=== PATIENT | female | born 1980 | race Caucasian/White ===

== ENCOUNTER 2017-12-04 14:55 | Inpatient (IN) | payer OTHER ==
[~2017-12-04] VITALS: Ht 162.6 cm; Wt 63.1 kg
[2017-12-04 15:25] LABS: ABSOLUTE BASOPHIL COUNT 0 /CUMM (0.0-0.2); ABSOLUTE EOSINOPHIL COUNT 0 /CUMM (0.0-0.7); ABSOLUTE GRANULOCYTE CT 4.6 /CUMM (1.4-6.5); ABSOLUTE LYMPH COUNT 0.6 /CUMM (1.2-3.4); ABSOLUTE MONOCYTE COUNT 0.4 /CUMM (0.10-0.60); BASOPHIL % 0.2 % (0.0-2.0); EOSINOPHIL % 0.1 % (0-5); GRANULOCYTE % 81.3 % (42.2-75.2); HEMATOCRIT 38.9 % (37-47); MEAN CORPUSCULAR HGB 34.1 PG (27.0-31.0); MEAN CORPUSCULAR HGB CONC 34.7 G/DL (33.0-37.0); MEAN CORPUSCULAR VOLUME 98.2 FL (81.0-99.0); MEAN PLATELET VOLUME 6.8 FL (7.4-10.4); PLATELET COUNT 308 /CUMM (130-400); RBC DISTRIBUTION WIDTH 14.9 % (11.5-14.5); RED BLOOD CELL CT 3.96 /CUMM (4.20-5.40); WHITE BLOOD CELL COUNT 5.7 /CUMM (4.8-10.8)
--- NOTE | 2017-12-04 15:59 | ED GENERAL ADULT ---
History of Present Illness General Chief Complaint: Abdominal Pain/Flank Pain Stated Complaint: +NV, ABD PAIN, X 8 HRS Source: patient Exam Limitations: no limitations Vital Signs & Intake/Output Vital Signs & Intake/Output Vital Signs Date Time Temp Pulse Resp B/P B/P Pulse O2 O2 Flow FiO2 Mean Ox Delivery Rate 12/05 0500 98.5 78 18 124/59 12/05 0455 98.5 78 18 124/59 95 Room Air 12/05 0013 98.2 88 18 115/56 99 Room Air 12/04 2351 98.4 92 18 124/90 96 Room Air 12/04 2349 98.4 92 18 12490 96 Room Air 12/04 2309 98.4 92 18 12490 96 Room Air 12/04 2230 98.4 92 18 124/90 12/04 2217 98.4 92 18 12490 96 Room Air 12/04 1830 98.2 72 18 132/78 12/04 1807 98.4 104 18 132/83 96 Room Air 12/04 1511 98.5 118 18 126/91 96 ED Intake and Output 12/05 0000 12/04 1200 Intake Total 2000 Output Total Balance 2000 Intake, IV 2000 Patient 140 lb Weight Weight Reported by Patient Measurement Method Allergies Coded Allergies: No Known Allergies (06/27/17) Triage Note: PT STATES SHE HAS BEEN VOMITING SINCE THIS AM UNABLE TO KEEP ANYTHING DOWN. PT STATES HER STOMACH IS KILLING HER. Triage Nurses Notes Reviewed? yes : No Patient currently breastfeeds: No HPI: 37-year-old woman with no reported past medical history seen for evaluation of abdominal pain, nausea, and vomiting. Patient reports over the past 2 days she has had severe migraine which is caused her to stay in bed. This morning she awoke with severe abdominal pain with associated nausea, vomiting and chills. She denies a history of gallbladder disease. She does admit to smoking half pack cigarettes per day. Additionally she smokes about 1/2 pint of vodka each day. She denies any new medications. She otherwise denies any current migraine, chest pain, palpitations, heartburn, shortness of breath, cough. (Hemalatha JURADO,[place]) Past History Travel History Traveled to [place] past 21 day No Medical History Any Pertinent Medical History? 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 No ([place] Penny MD) Review of Systems Review of Systems Constitutional: Reports: see HPI. ([place] Penny MD) Physical Exam Physical Exam General Appearance: well developed/nourished, no apparent distress, alert, awake , comfortable Comments: General - well developed, well nourished young woman in no acute distress HEENT - NCAT, PERRL, EOMI, anicteric sclera Neck- Supple, no JVD/HJR, no bruits, no accessory respiratory muscle use Cardio - S1, S2 w/o murmurs/gallops/rubs; tachycardic Resp - Clear to auscultation bilaterally GI - Soft, moderate/severe right lower quadrant tenderness, Shelley sign negative , nondistended, bowel sounds present Neuro - Awake and alert, CN II - XII grossly intact Extremities - No edema, pulses intact Core Measures ACS in differential dx? No CVA/TIA Diagnosis: No Sepsis Present: No Sepsis Focused Exam Completed? No ([place] Penny MD) Progress Differential Diagnoses I considered the following diagnoses in my evaluation of the patient: Gallstone pancreatitis, alcoholic pancreatitis, cholecystitis, cholangitis, choledocholithiasis, cholelithiasis, sepsis, EtOH abuse Plan of Care: Orders Procedure Date/time Status Nothing by Mouth 12/05 B Active URINALYSIS 12/05 0909 Active HEPATIC FUNCTION PANEL 12/05 0600 Complete CBC WITHOUT DIFFERENTIAL 12/05 0600 Complete BASIC ELECTROLYTES PLUS BUN&CR 12/05 0600 Complete Regular Diet 12/04 D Complete Weight 12/04 2306 Active Vital Signs 12/04 230 Active Teach/Educate 12/04 2305 Active Pain Treatment and Response 12/04 2305 Active Nutritional Intake, Monitor 12/04 2305 Active Isolation 12/04 2305 Active Intake & Output 12/04 2305 Active Patient Care Conference 12/04 2305 Active Activity/Ambulation 12/04 2305 Active Saline Lock 12/04 184 Active Pathway - chart 12/04 1847 Active House Staff 12/04 1847 Active Patient Data 12/04 1847 Active Patient Data 12/04 1841 Active Vital Signs 12/04 1841 Complete CIWA 12/04 1841 Complete Activity/Ambulation 12/04 1838 Active Intake & Output 12/04 1837 Active Code Status 12/04 1832 Active Add-on Test (ER Only) 12/04 1825 Active LACTIC ACID 12/04 1757 Complete Lab Add-on Test 12/04 1744 Active BLOOD CULTURE 12/04 1744 Active CULTURE,URINE 12/04 1641 Active CIWA 12/04 1631 Active Add-on Test (ER Only) 12/04 1628 Active Add-on Test (ER Only) 12/04 1618 Active EKG 12/04 1600 Active MAGNESIUM 12/04 1520 Complete LIPID PANEL 12/04 1520 Complete LDH (LACT ACID DEHYDROGENASE) 12/04 1520 Complete HEPATITIS PANEL 12/04 1520 Complete HUMAN BETA HCG SCREEN 12/04 1520 Complete ETHANOL 12/04 1520 Complete URINALYSIS 12/04 1457 Complete LIPASE 12/04 1457 Complete LACTIC ACID 12/04 1457 Complete COMPREHENSIVE METABOLIC PANEL 12/04 1457 Complete CBC WITHOUT DIFFERENTIAL 12/04 1457 Complete ED Holding Orders 12/04 UNK Active Admit to inpatient 12/04 UNK Active Lab Add-on Test 12/04 UNK Active VTE Mechanical Prophylaxis 12/04 UNK Active Vital Signs 12/04 UNK Complete MISTAKE 12/04 UNK Complete Precautions 12/04 UNK Active Current Medications Sig/Adrianne Start time Last Medication Dose Stop Time Status Admin Enoxaparin Sodium 40 MG DAILY 12/05 09 AC (Lovenox) Nicotine 7 MG DAILY 12/05 0900 AC 12/05 (Nicotine Cq) 0831 Ceftriaxone Sodium 1,000 MG DAILY 12/04 2300 AC 12/05 (Rocephin) 0831 Lorazepam 0 Q1P PRN 12/04 2044 AC (Ativan) Folic Acid 1 MG DAILY 12/04 2041 AC 12/05 (Folic Acid) 0831 Thiamine HCl 100 MG DAILY 12/04 2041 AC 12/05 (Vitamin B1) 0831 Multivitamins 1 TAB DAILY 12/04 2040 AC 12/05 (Theragran Vitamins) 0831 Ondansetron HCl 4 MG Q6P PRN 12/04 2030 AC (Zofran) Morphine Sulfate 0.5 MG Q4-6 PRN PRN 12/04 1900 AC (MORPHINE SULFATE) Acetaminophen 650 MG Q6P PRN 12/04 184 AC (Tylenol) Acetaminophen 1,000 MG Q6P PRN 12/04 184 AC 12/04 (Ofirmev) 2108 Sodium Chloride 1,000 ML .Q10H 12/04 184 AC 12/05 (Normal Saline 0.9%) 12/05 1444 0500 Laboratory Tests 12/05/17 0500: Anion Gap 6, Estimated GFR > 60, BUN/Creatinine Ratio 13.3, Total Bilirubin 1.4 H, Direct Bilirubin 0.6 H, AST 278 H, ALT 111 H, Alkaline Phosphatase 86, Total Protein 5.7 L, Albumin 3.2 L, CBC w Diff NO MAN DIFF REQ, RBC 3.19 L, MCV 99.6 H, MCH 33.7 H, MCHC 33.9, RDW 14.5, MPV 7.2 L, Gran % 68.5, Lymphocytes % 21.2, Monocytes % 9.2, Eosinophils % 0.7, Basophils % 0.4, Absolute Granulocytes 2.7, Absolute Lymphocytes 0.8 L, Absolute Monocytes 0.4, Absolute Eosinophils 0, Absolute Basophils 0 12/04/17 1820: Lactic Acid 1.0 12/04/17 1641: Urine Color BROWN H, Urine Clarity CLDY H, Urine pH 7.5, Ur Specific [place] 1.025, Urine Protein 100 H, Urine Ketones 15 H, Urine Nitrite POS H, Urine Bilirubin NEG@ICTO, Urine Urobilinogen 1.0, Ur Leukocyte Esterase LARGE H, Ur Microscopic SEDIMENT EXAMINED, Urine RBC >75 H, Urine WBC > 75 H, Ur Epithelial Cells MOD H, Urine Bacteria MANY H, Urine Hemoglobin LARGE H, Urine Glucose NEG 12/04/17 1600: Urine Test Cancelled 12/04/17 1520: Anion Gap 14, Estimated GFR > 60, BUN/Creatinine Ratio 15.0, Glucose 143 H, Lactic Acid 2.7 H, Calcium 9.9, Magnesium 1.3 L, Total Bilirubin 2.3 H, AST 334 H, ALT 146 H, Alkaline Phosphatase 146 H, Lactate Dehydrogenase 843 H, Total Protein 8.0, Albumin 4.9, Globulin 3.1, Albumin/Globulin Ratio 1.6, Triglycerides 70, Cholesterol 226 H, LDL Cholesterol, Calc 102, HDL Cholesterol 125 H, Cholesterol/HDL Ratio 1.8, Lipase 590 H, Total Beta HCG NEGATIVE, CBC w Diff NO MAN DIFF REQ, RBC 3.96 L, MCV 98.2, MCH 34.1 H, MCHC 34.7, RDW 14.9 H , MPV 6.8 L, Gran % 81.3 H, Lymphocytes % 11.3 L, Monocytes % 7.1, Eosinophils % 0.1, Basophils % 0.2, Absolute Granulocytes 4.6, Absolute Lymphocytes 0.6 L, Absolute Monocytes 0.4, Absolute Eosinophils 0, Absolute Basophils 0, Hepatitis A IgM Ab NONREACTIVE, Hep Bs Antigen NONREACTIVE, Hep B Core IgM Ab Conf NONREACTIVE, Hepatitis C Antibody NONREACTIVE, Serum Alcohol < 10.0 Microbiology 12/04 1820 BLOOD: Blood Culture - RES 12/04 1815 BLOOD: Blood Culture - RES 12/04 1641 URINE ROUT: Urine Culture - RES GRAM NEGATIVE RODS Initial ED EKG: none Comments: Presently patient feels nauseated with occasional vomiting and severe abdominal pain. Vital signs are significant for tachycardia up to 118. Significant labs include normal WBC, lactic acid 2.7, T bili 2.3, AST 334, ALT 146, ALP 146, lipase 590. Urinalysis demonstrated findings suggestive of a UTI with positive leukocyte esterase/nitrites with WBC >75 and bacteria seen with moderate epithelial cells; however patient is asymptomatic. CT scan without IV contrast of the abdomen/pelvis demonstrated no acute intra-abdominal pathology. Clinically patient appears to have an acute alcoholic hepatitis with impending alcohol withdrawal as she is tremulous on exam. Patient has an appetite and is requesting to eat and is feeling mildly improved after receiving intravenous fluids, pain meds, and antiemetics. Patient is to be admitted to the general medicine floor for further evaluation and supportive treatment of her alcoholic hepatitis and impending EtOH withdrawal. (Hemalatha JURADO,[place]) Differential Diagnoses I considered the following diagnoses in my evaluation of the patient: (Dario Persaud DO) Departure Departure Clinical Impression Primary Impression: Alcoholic hepatitis Referrals: Ebony Godoy MD (PCP/Family) Departure Forms: Customer Survey General Discharge Information Admission Note Spoke With: Benito Torres MD Documentation of Exam: Documentation of any treatments & extenuating circumstances including Concerns Regarding Discharge (functional status, medication knowledge or non-compliance, living conditions, etc.) that warrant an admission rather than observation: * Intravenous fluids/antiemetics/pain meds * Serial LFTs * CIWA scoring * Ativan * Consider antibiotics for possible UTI (Hemalatha JURADO,[place]) Departure Disposition: HOME OR SELF CARE Condition: Stable PA/MONUMENT SETTER Co-Sign Statement Statement: ED Attending supervision documentation- [X] I saw and evaluated the patient. I have also reviewed all the pertinent lab results and diagnostic results. I agree with the findings and the plan of care as documented in the PA's/MONUMENT SETTER's documentation. [] I have reviewed the ED Record and agree with the PA's/MONUMENT SETTER's documentation. [] Additions or exceptions (if any) to the PAs/MONUMENT SETTER's note and plan are summarized below: [] (Hung MUSTAFA,Dario Herzog) Critical Care Note Critical Care Note Critical Care Time: non-applicable ([place] Penny MD)
--- NOTE | 2017-12-04 17:44 | CT SCAN REPORT ---
EXAMINATION: CT ABDOMEN AND PELVIS WITHOUT CONTRAST CLINICAL INFORMATION: Elevated bilirubin. Elevated lactic acid. Nausea and vomiting. COMPARISON: None TECHNIQUE: Multidetector volumetric imaging was performed from the superior aspect of the liver through the pubic symphysis. Sagittal and coronal reformatted images were obtained on the technologist's workstation. DLP: 277.87 mGy-cm FINDINGS: LUNG BASES: The visualized lung bases are unremarkable. LIVER, GALLBLADDER, AND BILIARY TREE: There is diffuse marked low attenuation of the liver parenchyma consistent with fatty infiltration. There is no focal liver lesion. There is no intrahepatic bile duct dilatation. There is hepatomegaly. The right lobe liver measures 21.6 cm superior inferior. The gallbladder is unremarkable with no evidence of radiopaque gallstones, gallbladder wall thickening, or obvious pericholecystic inflammatory changes. PANCREAS: Unremarkable. SPLEEN: Unremarkable. ADRENAL GLANDS: Unremarkable. KIDNEYS AND URETERS: The kidneys are normal in size, shape, and attenuation. No hydronephrosis, hydroureter, or calculi seen. No perinephric stranding. BLADDER: Unremarkable. GASTROINTESTINAL TRACT: The small and large bowel are unremarkable. The appendix is unremarkable. ABDOMINAL WALL: Small fat-containing umbilical hernia. LYMPH NODES: Normal. VASCULAR: Unremarkable. PELVIC VISCERA: Unremarkable. OSSEOUS STRUCTURES: Unremarkable. IMPRESSION: No acute abnormality CT scan abdomen pelvis. Hepatomegaly with diffuse fatty change of liver.
[2017-12-04 18:30] VITALS: BP 132/78
--- NOTE | 2017-12-04 20:24 | History & Physical ---
Jade Javed 12/04/172022: General Information and HPI MD Statement: I have seen and personally examined FANY MASTERSON and documented this H&P. The patient is a 37 year old F who presented with a patient stated chief complaint of [N/V/ Abd pain]. Source of Information: patient Exam Limitations: no limitations History of Present Illness: 37 YO F with aPMHx signi. for alcohol abuse (multiple rehabs, last one in August 2017), and migraines who presented to the ER for N/V/Abd pain X 1 day. Pt was doing well until this am when she woke up and vomited. She had about 6 episodes of vomiting. Pt also reports urgency for the past 2-3 days. She reports nausea, palpitations, and generalized abdominal pain after vomiting and dry heaving. The abdominal pain is dull and 8 x 10 in intensity. Also reports black tarry stools. Denies: current headache, fever, chills, dysuria, hematuria, chest pain, palpitations, heartburn, shortness of breath, cough, loss of appetite, diarrhea, constipation, iron supplements, regular pain medications Pt reports having a migraine attack for the past two days. She also reports having associated nausea. She reports not taking any pain meds, as they don't help. Pt was in rehab for alcohol abuse this July & August in a rehab center in [place]. She reports drinking half a pint of vodka everyday. Last drink was 2 days ago. No history of withdrawal seizures. 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 Home Services at Home: None Primary Language: Azeri Smoking Status: Current Everyday Smoker (1/2 PPD) ETOH Use: heavy use Illicit Drug Use: denies illicit drug use Review of Systems Review of Systems Constitutional: Reports: see HPI. EENTM: Reports: no symptoms. Cardiovascular: Reports: no symptoms. Respiratory: Reports: no symptoms. GI: Reports: see HPI. Genitourinary: Reports: see HPI. Musculoskeletal: Reports: no symptoms. Skin: Reports: no symptoms. Neurological/Psychological: Reports: no symptoms. Hematologic/Endocrine: Reports: no symptoms. Immunologic/Allergic: Reports: no symptoms. All Other Systems: Reviewed and Negative Exam & Diagnostic Data Last 24 Hrs of Vital Signs/I&O Vital Signs Date Time Temp Pulse Resp B/P B/P Pulse O2 O2 Flow FiO2 Mean Ox Delivery Rate 12/05 0013 98.2 88 18 115/56 99 Room Air 12/04 2351 98.4 92 18 124/90 96 Room Air 12/04 2349 98.4 92 18 124/90 96 Room Air 12/04 2309 98.4 92 18 124/90 96 Room Air 12/04 2230 98.4 92 18 124/90 12/04 2217 98.4 92 18 12490 96 Room Air 12/04 1830 98.2 72 18 132/78 12/04 1807 98.4 104 18 132/83 96 Room Air 12/04 1511 98.5 118 18 126/91 96 Intake & Output 12/05 0800 12/05 0000 12/04 1600 Intake Total 2000 Output Total Balance 2000 Intake, IV 2000 Patient 140 lb Weight Weight Reported by Patient Measurement Method Physical Exam General Appearance Alert, Oriented X3, Cooperative, No Acute Distress Skin No Rashes, No Breakdown, No Significant Lesion Skin Temp/Moisture Exam: Cool/Dry Sepsis Skin Exam (color): Normal for Ethnicity HEENT Atraumatic, PERRLA, EOMI, Mucous Membr. moist/pink Neck Supple, No JVD, No thryomegaly Cardiovascular Regular Rate, Normal S1, Normal S2, No Murmurs Lungs Clear to Auscultation, Normal Air Movement Abdomen Normal Bowel Sounds, Soft, No Hepatospenomegaly, No Masses, Generalized tenderness Neurological Normal Speech, Strength at 5/5 X4 Ext, Normal Tone, Sensation Intact, Cranial Nerves 3-12 NL Extremities tremors Assessment/Plan Assessment: 37 YO F with aPMHx signi. for alcohol abuse (multiple rehabs, last one in , August 2017), and migraines who presented to the ER for N/V/Abd pain X 1 day. Vitals in ED: HR 118, afebrile, respiratory rate 18, blood pressure 1 26 x 91, saturating well on room air. Significant labs: normal WBC, lactic acid 2.7, T bili 2.3, AST 334, ALT 146, ALP 146, lipase 590. Urinalysis demonstrated findings suggestive of a UTI with positive leukocyte esterase/nitrites with WBC >75 and bacteria seen with moderate epithelial cells; CT abdomen: Hepatomegaly with diffuse fatty change of the liver, no other acute abnormality Problems list: #acute alcoholic hepatitis #UTI #impending alcohol withdrawal A & P: 1. Acute alcoholic hepatitis: Patient presented with nausea, vomiting, and 1 day. She is afebrile. Her labs are significant for a transaminitis. AST T3-4, ALT 246,, alkaline phosphatase [address] abdomen showed hepatomegaly with diffuse fatty change of the liver. She relapsed with alcohol abuse after being in rehab in July and August of this year. So this is very much likely to be acute alcoholic hepatitis. -Admit to general medicine floor -Check vitals every shift -Start IV fluids -Start adequate pain control -Start IV antibiotics -Follow-up LFTs on hospital stay 2. Possible acute pancreatitis: Patient complaint of generalized worsening abdominal pain. She has a history of alcohol abuse. Her lipase level was elevated at 590. Acute pancreatitis is likely at this time. -N.p.o. -Continue IV fluids and adequate pain control -Ultrasound abdomen to rule out gallstone as a cause of the acute pancreatitis versus alcohol abuse -Check lipid panel/hypertriglyceridemia as a cause of her pancreatitis 3. UTI: Patient reports urgency. Denies frequency, dysuria, hematuria, fever, chills. Her urinalysis showed WBC, bacteria, nitrates, esterase. It appears to be lower urinary tract infection. -Continue IV ceftriaxone 3 days -Follow-up urine cultures -Follow blood cultures 4. Lactic acidosis: On admission and lactic acid level was 2.7 which came down to 1 after hydration with 2 L of normal saline. The only source of infection found was a year-old urinary tract infection on urinalysis. -Follow-up blood cultures 2 -Follow-up urine cultures 5. Alcohol abuse/Withdrawal: -Patient reports that last drink was 2 days ago. Patient appears tremulous. Her serum alcohol is less than 10 -We will monitor CIWA score -Continue thiamine, folate -Ativan as required based on CIWA score 6. Current smoker: -Nicotine patch low dose was ordered DVT prophylaxis: Cutaneous Lovenox 5000 units Diet: N.p.o. CODE STATUS: Full code As Ranked By This Provider Problem List: 1. Abdominal pain 2. Alcoholic hepatitis 3. Smoker 4. UTI (urinary tract infection) 5. Lactic acid acidosis Core Measures/Misc (12/24) Acute Coronary Syndrome ACS Diagnosis: No Congestive Heart Failure Congestive Heart Failure Diagnosis No Cerebrovascular Accident CVA/TIA Diagnosis: No VTE (View Protocol) VTE Risk Factors Immobility No Mechanical VTE Prophylaxis d/t N/A MechProphylax Ordered No VTE Pharm Prophylaxis d/t NA PharmProphylax ordered Sepsis (View protocol) Sepsis Present: No If YES complete Sepsis Event Note If YES complete Sepsis Event Note Jose Alfredo Ayoub 12/04/17 2233: Core Measures/Misc (12/24) Sepsis (View protocol) If YES complete Sepsis Event Note If YES complete Sepsis Event Note Resident Review Statement Resident Statement: examined this patient, discussed with agribusiness internship, agreed with agribusiness internship, discussed with family, reviewed EMR data (avail), discussed with nursing , discussed with case mgmt, reviewed images, amended to note Other Findings: This is a 37-year-old female with past medical history significant for migraine, anxiety, alcohol abuse, smoker presented to the hospital with chief complaint of abdominal pain, nausea, vomiting for 1 day. Patient reports sudden onset of abdominal pain when she got up this morning, 10 out of 10, epigastric region, burning and stabbing associated with nausea and multiple episodes of vomiting. Vomitus was nonbloody and nonbilious. She denied any hematemesis, hematochezia. She reports one episode of black tarry stools. She denies any prior history of abdominal pain. No history of gallstones. No history of prior pancreatitis. Denies any heartburn. Of note she reports that she drinks half pint of vodka daily. She completed her alcohol rehab in July 2017, started drinking 1 pint of vodka again every day. She was never intubated for alcohol detox and alcohol withdrawal seizures. She smokes half pack per day. She denies any chest pain, fever, chills, palpitations, short of breath, cough, diarrhea or constipation. She reports urinary frequency and urgency. Denied any dysuria, fever or chills. Vitals afebrile, heart rate 118, respiratory rate 18, blood pressure 126/91, saturating at 96 on room air Labs WBC 5.7, hemoglobin 13 and hematocrit 38, platelets 308 Sodium 138, potassium 3.7, BUN 9 and creatinine 0.6 Glucose 143 EKG sinus rhythm, rate 90, no acute ST-T wave changes ct abd No acute abnormality CT scan abdomen pelvis. Hepatomegaly with diffuse fatty change of liver. 1. Alcoholic hepatitis Patient presented with sudden onset of abdominal pain associated with nausea and vomiting for 1 day. She denied any fever, chills, leukocytosis. Her labs show transaminitis AST 334, ALT 246, bilirubin 2.3 with alkaline phosphatase 146. Given her alcohol history/abuse her abdomen pain is most likely related to alcoholic hepatitis. CAT scan abdomen showed hepatomegaly with diffuse fatty change of liver. * Admit to GEN med * Monitor vitals every shift * Monitor for fever, leukocytosis * Supportive management * Alcohol cessation counseling * Follow up LFTs in the a.m. * Maddreys discriminant score less than 32 no role for steroids 2. Abdominal pain Patient presented with sudden onset abdominal pain, nausea, vomiting. Lipase was minimally elevated 590. Given her abdominal pain and minimally elevated lipase, 1 of the possibilities will be acute mild pancreatitis. * Will get right upper quadrant ultrasound to look for gallstones * Will check lipid panel * IV fluids * N.p.o. for now pending ultrasound * Adequate pain management * Antiemetics 3. Urinary tract infection Patient urine analysis showed nitrates, esterase, WBC, bacteria. On further questioning she reports frequency and urgency. Denied any dysuria, fever or chills. * Will give IV ceftriaxone for 3 days to treat lower UTI * Follow-up urine cultures * Monitor for fever, leukocytosis 4. Alcohol abuse Of note she reports that she drinks half-one pint of vodka daily. She completed her alcohol rehab in July 2017, started drinking 1 pint of vodka again every day. She was never intubated for alcohol detox and alcohol withdrawal seizures. * Last drink was 2 days prior to admission * Monitor Cristhian * Multivitamin * Thiamine * Folate * Ativan as required based on CIWA scores 5. Lactic acidosis She has lactic acid 2.7 at the time of admission. Received 2 bags of normal saline after his lactic acid improved to 1. No source of infection was found except for urinary tract infection. * Continue to monitor for any fever, leukocytosis * Follow-up blood cultures 2 * Follow-up urine cultures 6. Current smoker nicotine patch was ordered DVT prophylaxis subcu Lovenox N.p.o. Full code Pain pathway morphine, Tylenol was ordered Benito Torres MD 12/05/17 0111: Core Measures/Misc (12/24) Sepsis (View protocol) If YES complete Sepsis Event Note If YES complete Sepsis Event Note Attending MD Review Statement Attending Statement Attending MD Statement: examined this patient, discuss w/resident/PA/[employer]AKER, agreed w/resident/PA/[employer]AK[employer], reviewed EMR data (avail) Attending Assessment/Plan: 37F PMH polysubstance abuse presenting with 1 day of epigastric pain, nausea, and unable to tolerate PO. Has a long alcohol history, drinks daily, last drink earlier today. Has a history of withdrawal several years ago. Otherwise asymptomatic. Looks ill on exam, tender abdomen diffusely without rebound, no RUQ tendnerness. CT abd negative, but labs suggestive of alcoholic hepatitis with elevated lactate. Will admit to medicine, NPO, IV hydration, trend lactate and LFTs, CIWA for withdrawal.
[2017-12-04 22:30] VITALS: BP 124/90
[2017-12-04 23:09] VITALS: BP 124/90
[2017-12-04 23:49] VITALS: BP 124/90
[2017-12-04 23:51] VITALS: BP 124/90
[2017-12-05 05:00] VITALS: BP 124/59
[2017-12-05 05:20] LABS: ABSOLUTE BASOPHIL COUNT 0 /CUMM (0.0-0.2); ABSOLUTE EOSINOPHIL COUNT 0 /CUMM (0.0-0.7); ABSOLUTE GRANULOCYTE CT 2.7 /CUMM (1.4-6.5); ABSOLUTE LYMPH COUNT 0.8 /CUMM (1.2-3.4); ABSOLUTE MONOCYTE COUNT 0.4 /CUMM (0.10-0.60); BASOPHIL % 0.4 % (0.0-2.0); EOSINOPHIL % 0.7 % (0-5); GRANULOCYTE % 68.5 % (42.2-75.2); MEAN CORPUSCULAR HGB 33.7 PG (27.0-31.0); MEAN CORPUSCULAR HGB CONC 33.9 G/DL (33.0-37.0); MEAN CORPUSCULAR VOLUME 99.6 FL (81.0-99.0); MEAN PLATELET VOLUME 7.2 FL (7.4-10.4); PLATELET COUNT 209 /CUMM (130-400); RBC DISTRIBUTION WIDTH 14.5 % (11.5-14.5); RED BLOOD CELL CT 3.19 /CUMM (4.20-5.40)
[2017-12-05 05:24] LABS: HEMATOCRIT 31.8 % (37-47)
--- NOTE | 2017-12-05 06:56 | PN- Housestaff ---
See Addendum Subjective Follow-up For: Abdominal Pain Alcohol Hepatitis Urinary Tract Infection Alcohol Abuse Subjective: Patient seen and examined at bedside this morning. She is currently on IV ceftriaxone and IV fluids at 100 mL/hr. She claims her nausea and abdominal pain has improved although located at right lower quadrant. She denies any diarrhea, fevers, chills or any complaints overnight. Currently NPO pending RUQ US results. Review of Systems Constitutional: Denies: see HPI. Objective Last 24 Hrs of Vital Signs/I&O Vital Signs Date Time Temp Pulse Resp B/P B/P Pulse O2 O2 Flow FiO2 Mean Ox Delivery Rate 12/05 0500 98.5 78 18 124/59 12/05 0455 98.5 78 18 124/59 95 Room Air 12/05 0013 98.2 88 18 115/56 99 Room Air 12/04 2351 98.4 92 18 124/90 96 Room Air 12/04 2349 98.4 92 18 124/90 96 Room Air 12/04 2309 98.4 92 18 124/90 96 Room Air 12/04 2230 98.4 92 18 124/90 12/04 2217 98.4 92 18 124/90 96 Room Air 12/04 1830 98.2 72 18 132/78 12/04 1807 98.4 104 18 132/83 96 Room Air 12/04 1511 98.5 118 18 126/91 96 Intake & Output 12/05 1600 12/05 0800 12/05 0000 Intake Total 2000 Output Total Balance 2000 Intake, IV 2000 Physical Exam General Appearance: Alert, Oriented X3, Cooperative Skin: No Rashes, No Breakdown HEENT: PERRLA, EOMI, Mucous Membr. moist/pink Cardiovascular: Regular Rate, Normal S1, Normal S2 Lungs: Clear to Auscultation, Normal Air Movement Abdomen: Tenderness to palpation of right lower quadrant close to pelvis Negative Devils Elbow No rebound Extremities: No Clubbing, No Cyanosis, No Edema Current Medications: Current Medications Sig/Adrianne Start time Last Medication Dose Route Stop Time Status Admin Acetaminophen 0 .STK-MED ONE 12/04 2108 DC IV Acetaminophen 650 MG Q6P PRN 12/04 184 AC PO Acetaminophen 1,000 MG Q6P PRN 12/04 1845 AC 12/04 IV 210 Ceftriaxone Sodium 0 .STK-MED ONE 12/04 2323 DC .ROUTE Ceftriaxone Sodium 1,000 MG DAILY 12/04 2300 AC 12/05 IV 0831 Enoxaparin Sodium 40 MG DAILY 12/05 0900 AC SC Enoxaparin Sodium 40 MG DAILY PRN 12/04 1900 DC SC 12/05 0859 Folic Acid 0 .STK-MED ONE 12/04 2105 DC PO Folic Acid 1 MG DAILY 12/04 2042 AC 12/05 PO 0831 Lorazepam 0 Q1P PRN 12/04 204 AC IV Morphine Sulfate 0.5 MG Q4-6 PRN PRN 12/04 1900 AC IV Morphine Sulfate 0 .STK-MED ONE 12/04 1712 DC .ROUTE Morphine Sulfate 4 MG ONCE ONE 12/04 1645 DC 12/04 IV 12/04 1646 1723 Multivitamins 0 .STK-MED ONE 12/04 2104 DC PO Multivitamins 1 TAB DAILY 12/04 204 AC 12/05 PO 0831 Nicotine 7 MG DAILY 12/05 0900 AC 12/05 TOP 0831 Ondansetron HCl 4 MG Q6P PRN 12/04 2030 AC IV Ondansetron HCl 0 .STK-MED ONE 12/04 1712 DC .ROUTE Ondansetron HCl 4 MG ONCE ONE 12/04 1645 DC 12/04 IV 12/04 1646 1724 Sodium Chloride 1,000 ML .Q10H 12/04 1845 AC 12/05 IV 12/05 1444 0500 Sodium Chloride 1,000 ML BOLUS ONE 12/04 1800 DC 12/04 IV 12/04 1859 1830 Sodium Chloride 1,000 ML BOLUS ONE 12/04 1600 DC 12/04 IV 12/04 1659 1723 Thiamine HCl 0 .STK-MED ONE 12/04 2104 DC PO Thiamine HCl 100 MG DAILY 12/04 204 AC 12/05 PO 0831 Last 24 Hrs of Lab/Morales Results Last 24 Hrs of Labs/Mics: Laboratory Tests 12/05/17 0500: Anion Gap 6, Estimated GFR > 60, BUN/Creatinine Ratio 13.3, Total Bilirubin 1.4 H, Direct Bilirubin 0.6 H, AST 278 H, ALT 111 H, Alkaline Phosphatase 86, Total Protein 5.7 L, Albumin 3.2 L, CBC w Diff NO MAN DIFF REQ, RBC 3.19 L, MCV 99.6 H, MCH 33.7 H, MCHC 33.9, RDW 14.5, MPV 7.2 L, Gran % 68.5, Lymphocytes % 21.2, Monocytes % 9.2, Eosinophils % 0.7, Basophils % 0.4, Absolute Granulocytes 2.7, Absolute Lymphocytes 0.8 L, Absolute Monocytes 0.4, Absolute Eosinophils 0, Absolute Basophils 0 12/04/17 1820: Lactic Acid 1.0 12/04/17 1641: Urine Color BROWN H, Urine Clarity CLDY H, Urine pH 7.5, Ur Specific Banner 1.025, Urine Protein 100 H, Urine Ketones 15 H, Urine Nitrite POS H, Urine Bilirubin [email or web address]@[email or web address], Urine Urobilinogen 1.0, Ur Leukocyte Esterase LARGE H, Ur Microscopic SEDIMENT EXAMINED, Urine RBC >75 H, Urine WBC > 75 H, Ur Epithelial Cells MOD H, Urine Bacteria MANY H, Urine Hemoglobin LARGE H, Urine Glucose NEG 12/04/17 1600: Urine Test Cancelled 12/04/17 1520: Anion Gap 14, Estimated GFR > 60, BUN/Creatinine Ratio 15.0, Glucose 143 H, Lactic Acid 2.7 H, Calcium 9.9, Magnesium 1.3 L, Total Bilirubin 2.3 H, AST 334 H, ALT 146 H, Alkaline Phosphatase 146 H, Lactate Dehydrogenase 843 H, Total Protein 8.0, Albumin 4.9, Globulin 3.1, Albumin/Globulin Ratio 1.6, Triglycerides 70, Cholesterol 226 H, LDL Cholesterol, Calc 102, HDL Cholesterol 125 H, Cholesterol/HDL Ratio 1.8, Lipase 590 H, Total Beta HCG NEGATIVE, CBC w Diff NO MAN DIFF REQ, RBC 3.96 L, MCV 98.2, MCH 34.1 H, MCHC 34.7, RDW 14.9 H , MPV 6.8 L, Gran % 81.3 H, Lymphocytes % 11.3 L, Monocytes % 7.1, Eosinophils % 0.1, Basophils % 0.2, Absolute Granulocytes 4.6, Absolute Lymphocytes 0.6 L, Absolute Monocytes 0.4, Absolute Eosinophils 0, Absolute Basophils 0, Hepatitis A IgM Ab NONREACTIVE, Hep Bs Antigen NONREACTIVE, Hep B Core IgM Ab Conf NONREACTIVE, Hepatitis C Antibody NONREACTIVE, Serum Alcohol < 10.0 Microbiology 12/05 1819 BLOOD: Blood Culture - RES 12/04 1814 BLOOD: Blood Culture - RES 12/04 1641 URINE ROUT: Urine Culture - RES GRAM NEGATIVE RODS Assessment/Plan Assessment: This is a 37-year-old female with past medical history significant for migraine, anxiety, alcohol abuse, smoker presented to the hospital with chief complaint of abdominal pain, nausea, vomiting for 1 day. Abdominal pain on morning of admission 10/10, burning, stabbing with nausea and multiple episodes of vomiting (nonbloody and nonbilious). Patient drinks half pint of vodka daily. Completed alcohol rehab in July 2017 and started drinking 1 pint of vodka again everyday. Smokes half a pack a day. CT ABDOMEN No acute abnormality CT scan abdomen pelvis. Hepatomegaly with diffuse fatty change of liver. PROBLEM LIST: 1. Alcoholic Hepatitis 2. Abdominal Pain 3. Urinary Tract Infection 4. Alcohol Abuse Alcoholic Hepatitis Patient presented with sudden onset of abdominal pain associated with nausea and vomiting for 1 day. She denied any fever, chills, leukocytosis. Her labs show transaminitis AST 334, ALT 246, bilirubin 2.3 with alkaline phosphatase 146. Given her alcohol history/abuse her abdomen pain is most likely related to alcoholic hepatitis. CAT scan abdomen showed hepatomegaly with diffuse fatty change of liver. RUQ US demonstrates mild hepatomegaly and there is hepatic steatosis diffusely. * Monitor for fever, leukocytosis * LFTs trending down: AST: 278, ALT 111, ALP 86, Total Bilirubin 1.4 * Follow up hepatitis serology * Alcohol abuse counseling Abdominal pain Patient presented with sudden onset abdominal pain, nausea, vomiting. Lipase was minimally elevated 590. Given her abdominal pain and minimally elevated lipase, 1 of the possibilities will be acute mild pancreatitis vs gall stone. * RUQ US: Mild hepatomegaly and there is hepatic steatosis diffusely. * IV fluids NS 100/hr * Transitioning diet to Full Liquids and see how patietn tolerates given no gallstones in RUQ US * Adequate pain management (Tylenol, Morphine 0.5mg q4-6 PRN IV) * Antiemetics - Zofran Urinary Tract Infection Patient urine analysis showed nitrates, esterase, WBC, bacteria. Patient reports urgency but no dysuria or frequency, fever or chills. * Will give IV ceftriaxone for 3 days to treat lower UTI * Follow-up urine cultures * Monitor for fever, leukocytosis Alcohol Abuse Of note she reports that she drinks half-one pint of vodka daily. She completed her alcohol rehab in July 2017, started drinking 1 pint of vodka again every day. She was never intubated for alcohol detox and alcohol withdrawal seizures. Scoring 6 on admission. * Monitor CIWA * Multivitamin * Thiamine * Folate * Ativan as required based on CIWA scores Lactic Acidosis - resolved She has lactic acid 2.7 at the time of admission. Received 2 bags of normal saline after his lactic acid improved to 1. No source of infection was found except for urinary tract infection. * Continue to monitor for any fever, leukocytosis * Follow-up blood cultures 2 * Follow-up urine cultures Smoking History * nicotine patch was ordered DVT prophylaxis subcu Lovenox Diet: NPO Full code Problem List: 1. Abdominal pain 2. Alcoholic hepatitis 3. UTI (urinary tract infection) Pain Ratin Pain Location: Right lower quadrant/pelvis Pain Goal: Pain 4 or less Pain Plan: as per pain pathway Tomorrow's Labs & Rationales: CBC BEP Pain Plan: as per pain pathway Tomorrow's Labs & Rationales: CBC BEP
--- NOTE | 2017-12-05 08:24 | ULTRASOUND REPORT ---
EXAMINATION: US ABDOMEN COMPLETE CLINICAL INFORMATION: Pancreatitis. Assess for gallstones.. COMPARISON: CT scan of the abdomen and pelvis 12/04/2017. TECHNIQUE: Real-time grayscale and Doppler ultrasound of the abdomen was obtained. Imaging is slightly suboptimal due to patient body habitus. FINDINGS: PANCREAS: Normal. ABDOMINAL AORTA: The proximal segment is normal in caliber. INFERIOR VENA CAVA: Visualized portions are normal. LIVER: The liver is mildly enlarged. It has normal contour. Diffusely increased echogenicity consistent with hepatic steatosis. No focal lesion or intrahepatic biliary duct dilatation. GALLBLADDER: The gallbladder is physiologically distended without evidence of stones, sludge, polyps, wall thickening or pericholecystic fluid. COMMON BILE DUCT: Normal in caliber measuring 0.5 cm in diameter. RIGHT KIDNEY: There is no hydronephrosis. No renal calculi or focal parenchymal lesions. The kidney measures 11.2 cm in maximum dimension. LEFT KIDNEY: There is no hydronephrosis. No renal calculi or focal parenchymal lesions. The kidney measures 10.6 cm in maximum dimension. SPLEEN: The spleen measures 8.5 cm in maximum dimension. FREE FLUID: None. IMPRESSION: 1. There is mild hepatomegaly and there is hepatic steatosis diffusely. 2. The remainder of the study is unremarkable.
[2017-12-05 14:02] VITALS: BP 129/71
[2017-12-05 17:39] VITALS: BP 118/76
[2017-12-05 19:14] VITALS: BP 136/90
[2017-12-05 20:15] VITALS: BP 122/80
[2017-12-06 06:34] VITALS: BP 122/82
--- NOTE | 2017-12-06 07:07 | PN- Housestaff ---
Kayli Hicks 12/06/17 0707: Subjective Follow-up For: Alcohol Abuse Alcohol Hepatitis Urinary Tract Infection Subjective: Patient claims to feel well this morning and states she is ready to go home. She denies the left lower abdominal pain that was on admission. Patient has not had any nausea or vomiting and has been tolerating a regular diet well. No CIWA scores reported or need for ativan. Patient stable for discharge. She denies any dysuria, frequency, urgency. Review of Systems Constitutional: Denies: see HPI. Objective Last 24 Hrs of Vital Signs/I&O Vital Signs Date Time Temp Pulse Resp B/P B/P Pulse O2 O2 Flow FiO2 Mean Ox Delivery Rate 12/06 06 98.5 96 16 122/82 98 12/05 2014 98.1 54 16 122/80 96 Room Air 12/05 1914 98.1 83 18 136/90 98 Room Air 12/05 1739 98.0 79 15 118/76 12/05 1402 98.0 71 16 129/71 99 Room Air Intake & Output 12/06 1600 12/06 0800 12/06 0000 Intake Total 240 Output Total Balance 240 Intake, Oral 240 Patient 139 lb Weight Weight Bed scale Measurement Method Physical Exam General Appearance: Alert, Oriented X3, Cooperative, No Acute Distress Skin: No Rashes, No Breakdown HEENT: PERRLA, EOMI, Mucous Membr. moist/pink Cardiovascular: Regular Rate, Normal S1, Normal S2 Lungs: Clear to Auscultation, Normal Air Movement Abdomen: Normal Bowel Sounds, Soft, No Tenderness Extremities: No Clubbing, No Cyanosis, No Edema Vascular: Normal Pulses, Pulses Symmetrical Current Medications: Current Medications Sig/Adrianne Start time Last Medication Dose Route Stop Time Status Admin Acetaminophen 650 MG Q6P PRN 12/04 1844 AC PO Acetaminophen 1,000 MG Q6P PRN 12/04 184 AC 12/04 IV 2108 Ceftriaxone Sodium 1,000 MG DAILY 12/04 230 AC 12/06 IV 44 Enoxaparin Sodium 40 MG DAILY 12/05 09 AC SC Folic Acid 1 MG DAILY 12/04 2041 AC 12/06 PO 843 Lorazepam 0 Q1P PRN 12/04 2044 AC IV Morphine Sulfate 0.5 MG Q4-6 PRN PRN 12/04 1900 AC IV Multivitamins 1 TAB DAILY 12/04 2040 AC 12/06 PO 0844 Nicotine 7 MG DAILY 12/05 0900 AC 12/06 TOP 0844 Ondansetron HCl 4 MG Q6P PRN 12/04 2030 AC IV Sodium Chloride 1,000 ML .Q10H 12/04 1845 DC 12/05 IV 12/05 1444 0500 Thiamine HCl 100 MG DAILY 12/04 2041 AC 12/06 PO 0844 Last 24 Hrs of Lab/Morales Results Last 24 Hrs of Labs/Mics: Laboratory Tests 12/06/17 0720: Anion Gap 8, Estimated GFR > 60, BUN/Creatinine Ratio 8.0, CBC w Diff NO MAN DIFF REQ, RBC 3.52 L, MCV 100.0 H, MCH 34.3 H, MCHC 34.3, RDW 13.9, MPV 8.1, Gran % 64.9, Lymphocytes % 25.7, Monocytes % 6.1, Eosinophils % 2.3, Basophils % 1.0, Absolute Granulocytes 2.1, Absolute Lymphocytes 0.8 L, Absolute Monocytes 0.2, Absolute Eosinophils 0.1, Absolute Basophils 0 12/05/17 1533: Urine Color YEL, Urine Clarity CLEAR, Urine pH 7.0, Ur Specific [place] 1.020, Urine Protein NEG, Urine Ketones TRACE H, Urine Nitrite NEG, Urine Bilirubin NEG, Urine Urobilinogen 1.0, Ur Leukocyte Esterase NEG, Ur Microscopic EXAM NOT REQUIRED, Urine Hemoglobin NEG, Urine Glucose NEG Assessment/Plan Assessment: This is a 37-year-old female with past medical history significant for migraine, anxiety, alcohol abuse, smoker presented to the hospital with chief complaint of abdominal pain, nausea, vomiting for 1 day. Abdominal pain on morning of admission 01/16, burning, stabbing with nausea and multiple episodes of vomiting (nonbloody and nonbilious). Patient drinks half pint of vodka daily. Completed alcohol rehab in July 2017 and started drinking 1 pint of vodka again everyday. Smokes half a pack a day. 12/06: Patient tolerating diet with no abdominal pain, nausea, vomiting, fevers or chills. Patient is stable for discharge today. Advised and counseled to cut down on drinking given her admission. Patient will be discharged on 2 more days of oral antibiotics to complete her course for her UTI. PROBLEM LIST: 1. Alcoholic Hepatitis 2. Abdominal Pain 3. Urinary Tract Infection 4. Alcohol Abuse Alcoholic Hepatitis Patient presented with sudden onset of abdominal pain associated with nausea and vomiting for 1 day. She denied any fever, chills, leukocytosis. Her labs show transaminitis AST 334, ALT 246, bilirubin 2.3 with alkaline phosphatase 146. Given her alcohol history/abuse her abdomen pain is most likely related to alcoholic hepatitis. CAT scan abdomen showed hepatomegaly with diffuse fatty change of liver. RUQ US demonstrates mild hepatomegaly and there is hepatic steatosis diffusely. * Afebrile, no fever or leukocytosis * LFTS have trended down Abdominal pain Patient presented with sudden onset abdominal pain, nausea, vomiting. Lipase was minimally elevated 590. Given her abdominal pain and minimally elevated lipase, 1 of the possibilities will be acute mild pancreatitis vs gall stone. * RUQ US: Mild hepatomegaly and there is hepatic steatosis diffusely. * Tolerated regular diet today * Adequate pain management (Tylenol, Morphine 0.5mg q4-6 PRN IV) * Antiemetics - Zofran Urinary Tract Infection Patient urine analysis showed nitrates, esterase, WBC, bacteria. Patient reports urgency but no dysuria or frequency, fever or chills. * Will give IV ceftriaxone for 3 days to treat lower UTI. Discharging patient on Cefopoxidime 200mg BID for 2 more days to complete treatment. * Follow-up urine cultures Alcohol Abuse -No CIWA scores reported today. Will discharge patient on multivitamin, thiamine , folate. * Educated patient on cutting back and quitting drinking given the circumstances to her health. Lactic Acidosis - resolved * Afebrile with no leukocytosis during stay Smoking History * nicotine patch was ordered DVT prophylaxis subcu Lovenox Diet: NPO Full code Problem List: 1. Abdominal pain 2. UTI (urinary tract infection) 3. Alcoholic hepatitis Pain Ratin Pain Location: Denied pain today Pain Goal: Remain pain free Pain Plan: as per pain pathway Tomorrow's Labs & Rationales: Patient to be discharged Brad Gibbs MD 12/06/17 1723: Attending MD Review Statement Attending Statement Attending Statement: examined this patient, discuss w/resident/PA/CLEARING HAND, agreed w/resident/PA/CLEARING HAND, reviewed EMR data (avail), discussed with nursing, discussed with case mgmt, amended to note Attending Assessment/Plan: The patient was seen and discussed with house staff. Significant improvement with no withdrawal symptoms. OK to discharge to home today. GNR in urine. Will send home on po Vantin- will check final cultures and verify sensitivity. with no withdrawal symptoms. OK to discharge to home today. GNR in urine. Will send home on po Vantin- will check final cultures and verify sensitivity.
[2017-12-06 08:37] LABS: ABSOLUTE BASOPHIL COUNT 0 /CUMM (0.0-0.2); ABSOLUTE EOSINOPHIL COUNT 0.1 /CUMM (0.0-0.7); ABSOLUTE GRANULOCYTE CT 2.1 /CUMM (1.4-6.5); ABSOLUTE LYMPH COUNT 0.8 /CUMM (1.2-3.4); ABSOLUTE MONOCYTE COUNT 0.2 /CUMM (0.10-0.60); EOSINOPHIL % 2.3 % (0-5); GRANULOCYTE % 64.9 % (42.2-75.2); HEMATOCRIT 35.2 % (37-47); MEAN CORPUSCULAR HGB 34.3 PG (27.0-31.0); MEAN CORPUSCULAR HGB CONC 34.3 G/DL (33.0-37.0); MEAN PLATELET VOLUME 8.1 FL (7.4-10.4); PLATELET COUNT 219 /CUMM (130-400); RBC DISTRIBUTION WIDTH 13.9 % (11.5-14.5); RED BLOOD CELL CT 3.52 /CUMM (4.20-5.40); WHITE BLOOD CELL COUNT 3.2 /CUMM (4.8-10.8)
--- NOTE | 2017-12-06 12:51 | Patient Discharge Instructions ---
Discharge Instructions General Discharge Information You were seen/treated for: Alcohol Hepatitis Urinary Tract Infection Special Instructions: Please follow up with your PCP within 1-2 weeks of discharge. Please continue medications as prescribed. Please return to ED if worsening symptoms of vomiting, abdominal pain, fevers, chills. Diet Continue normal diet: Yes Recommended Diet: Regular Acute Coronary Syndrome Inclusion Criteria At DC or during hospital stay patient has or had the following: ACS DIAGNOSIS No Discharge Core Measures Meds if any: Prescribed or Continued at Discharge Meds if any: NOT Prescribed or Continued at Discharge Congestive Heart Failure Inclusion Criteria At DC or during hospital stay patient has or had the following: CHF DIAGNOSIS No Discharge Core Measures Meds if any: Prescribed or Continued at Discharge Meds if any: NOT Prescribed or Continued at Discharge Cerebrovascular accident Inclusion Criteria At DC or during hospital stay patient has or had the following: CVA/TIA Diagnosis No Discharge Core Measures Meds if any: Prescribed or Continued at Discharge Meds if any: NOT Prescribed or Continued at Discharge Venous thromboembolism Inclusion Criteria VTE Diagnosis No VTE Type NONE VTE Confirmed by (Test) NONE Discharge Core Measures - Per Current guidelines, there needs to be overlap - treatment for the first 5 days of Warfarin therapy. - If discharged on Warfarin prior to 5 days of - overlap therapy, the patient will need to be - assessed for post discharge needs including - *Post discharge parental anticoagulation - *Warfarin and/or parental anticoagulation education - *Follow up date to check INR post discharge At least 5 days overlap therapy as Inpatient No Meds if any: Prescribed or Continued at Discharge Note: Overlap Therapy is Warfarin and Anticoagulant Meds if any: NOT Prescribed or Continued at Discharge
[2017-12-06] MEDS ORDERED: VITAMIN B-1100 MG PO (12:53)
[2017-12-06] MEDS ORDERED: FOLIC ACID1 M1 PO (12:53)
[2017-12-06] MEDS ORDERED: ONE DAILY MULT1 EAC2 PO (12:53)
--- NOTE | 2017-12-06 12:53 | Discharge Summary ---
Visit Information Visit Dates Admission Date: 12/04/17 Discharge Date: 12/06/17 Hospital Course Course Attending Physician: Brad Gibbs MD Primary Care Physician: Walt JURADO,[facility] Hospital Course: 37 YO F with aPMHx signi. for alcohol abuse (multiple rehabs, last one in August 2017), and migraines who presented to the ER for N/V/Abd pain X 1 day. Pt was doing well until 12/04/17 morning when she woke up and vomited. She had about 6 episodes of vomiting. Pt also reports urgency for the past 2-3 days. She reports nausea, palpitations, and generalized abdominal pain after vomiting and dry heaving. The abdominal pain is dull and 8 x 10 in intensity. Also reports black tarry stools. Pt reports having a migraine attack for the past two days. She also reports having associated nausea. She reports not taking any pain meds, as they don't help. She reports drinking half a pint of vodka everyday. Last drink was 2 days prior to admission. No history of withdrawal seizures. ED COURSE: Vitals in ED: HR 118, afebrile, respiratory rate 18, blood pressure 1 26 x 91, saturating well on room air. Significant labs: normal WBC, lactic acid 2.7, T bili 2.3, AST 334, ALT 146, ALP 146, lipase 590. Urinalysis demonstrated findings suggestive of a UTI with positive leukocyte esterase/nitrites with WBC >75 and bacteria seen with moderate epithelial cells; CT abdomen: Hepatomegaly with diffuse fatty change of the liver, no other acute abnormality GENERAL MEDICINE ADMISSION: Patient admitted to general medicine floor for evaluation, treatment and monitoring of the following: PROBLEM LIST: 1. Alcoholic Hepatitis 2. Abdominal Pain 3. Urinary Tract Infection 4. Alcohol Abuse Alcoholic Hepatitis Patient presented with sudden onset of abdominal pain associated with nausea and vomiting for 1 day. She denied any fever, chills, leukocytosis. Her labs show transaminitis AST 334, ALT 246, bilirubin 2.3 with alkaline phosphatase 146. Given her alcohol history/abuse her abdomen pain is most likely related to alcoholic hepatitis. CAT scan abdomen showed hepatomegaly with diffuse fatty change of liver. RUQ US demonstrates mild hepatomegaly and there is hepatic steatosis diffusely. Monitored for fever, leukocytosis LFTs trended down to AST: 278, ALT 111, ALP 86, Total Bilirubin 1.4. Patient educated on alcohol abuse. Abdominal Pain Patient presented with sudden onset abdominal pain, nausea, vomiting. This was likely secondary to her alcohol hepatitis given elevated liver enzymes and Lipase was minimally elevated 590. Given her abdominal pain and minimally elevated lipase, 1 of the possibilities will be acute mild pancreatitis vs gall stone. RUQ US: Mild hepatomegaly and there is hepatic steatosis diffusely. Patient was on IV fluids NS 100/hr before Transitioning diet to Full Liquids and regular diet after no gallstones found on RUQ US. Adequate pain management ( Tylenol, Morphine 0.5mg q4-6 PRN IV). Antiemetics zofran for nausea. Patients abdominal pain also contributed to her urinary tract infection given positive urinary culture of gram negative rods which she was treated with 3 doses of IV ceftriaxone and discharged on cefopoxidime 200mg BID for 2 more days to complete a 5 day course. Patients abdominal pain and nausea subsided prior to discharge. Urinary Tract Infection Patient urine analysis showed nitrates, esterase, WBC, bacteria. Patient reports urgency but no dysuria or frequency, fever or chills. Pattient given 3 doses IV ceftriaxone with urine culture positive for gram negative rods. She was discharged on cefopoxidime 200 mg BID for 2 more days to compelte a 5 day course of antibiotics. Patient was afebrile with no leukocytosis during her stay. A repeat UA was postivie for only ketones. Alcohol Abuse Of note she reports that she drinks half-one pint of vodka daily. She completed her alcohol rehab in July 2017, started drinking 1 pint of vodka again every day. She was never intubated for alcohol detox and alcohol withdrawal seizures. Scoring 6 on admission. Monitored CIWA during stay. Patient did not require IV or PO ativan during stay. Started on thiamine, folate, multivitamin accordingly. Lactic Acidosis - resolved She has lactic acid 2.7 at the time of admission. Received 2 bags of normal saline after his lactic acid improved to 1. No source of infection was found except for urinary tract infection. No fevers or leukocytosis during stay. Urine culture grew gram negative rods for which she has been given 3 doses of IV ceftriaxone and discharged on 2 more days of antibiotics. Smoking History * nicotine patch was ordered DVT prophylaxis subcu Lovenox Diet: NPO Full code Allergies: Coded Allergies: No Known Allergies (06/27/17) Disposition Summary Disposition Principal Diagnosis: Alcohol Hepatitis Additional Diagnosis: Urinary Tract Infection Discharge Disposition: home or self care Discharge Instructions General Discharge Information Code Status: Full Code Patient's Diet: Regular Diet Patient's Activity: As Tolerated Follow-Up Instructions/Appts: Please follow up with PCP within 1-2 weeks of discharge. Please return to ED with worsening symptoms of abdominal pain, vomiting, fevers/ chills. Medications at Discharge Discharge Medications: Start taking the following new medications: Folic Acid (Folic Acid) 1 MG TABLET 1 Tablet ORAL DAILY Qty = 30 No Refills Comments: last given 12/06/17 @ 0844 Thiamine HCl (Vitamin B-1) 100 MG TABLET 1 Tablet ORAL DAILY Qty = 30 No Refills Comments: last given 12/06/17 @ 0844 Multivitamin (One Daily Multivitamin) 1 EACH TABLET 1 Tablet ORAL DAILY Qty = 30 No Refills Comments: last given 12/06/17 @ 0844 Cefpodoxime Proxetil (Cefpodoxime Proxetil) 200 MG TABLET 1 Tablet ORAL TWICE DAILY Qty = 4 No Refills Copies To: Walt JURADO,Ebony Attending MD Review Statement Documenting Attending: Brad Gibbs MD Other Findings: Agree with the above summary of care and plan upon discharge.
--- NOTE | 2017-12-06 12:56 | Patient Discharge Instructions ---
Discharge Instructions General Discharge Information You were seen/treated for: Alcohol Hepatitis Urinary Tract Infection Special Instructions: Please follow up with your PCP within 1-2 weeks of discharge. Please continue antibiotics for 2 more days Cefpodoxime 200mg 2 tablets a day. Please return to ED if worsening symptoms of vomiting, abdominal pain, fevers, chills. Diet Continue normal diet: Yes Recommended Diet: Regular Acute Coronary Syndrome Inclusion Criteria At DC or during hospital stay patient has or had the following: ACS DIAGNOSIS No Discharge Core Measures Meds if any: Prescribed or Continued at Discharge Meds if any: NOT Prescribed or Continued at Discharge Congestive Heart Failure Inclusion Criteria At DC or during hospital stay patient has or had the following: CHF DIAGNOSIS No Discharge Core Measures Meds if any: Prescribed or Continued at Discharge Meds if any: NOT Prescribed or Continued at Discharge Cerebrovascular accident Inclusion Criteria At DC or during hospital stay patient has or had the following: CVA/TIA Diagnosis No Discharge Core Measures Meds if any: Prescribed or Continued at Discharge Meds if any: NOT Prescribed or Continued at Discharge Venous thromboembolism Inclusion Criteria VTE Diagnosis No VTE Type NONE VTE Confirmed by (Test) NONE Discharge Core Measures - Per Current guidelines, there needs to be overlap - treatment for the first 5 days of Warfarin therapy. - If discharged on Warfarin prior to 5 days of - overlap therapy, the patient will need to be - assessed for post discharge needs including - *Post discharge parental anticoagulation - *Warfarin and/or parental anticoagulation education - *Follow up date to check INR post discharge At least 5 days overlap therapy as Inpatient No Meds if any: Prescribed or Continued at Discharge Note: Overlap Therapy is Warfarin and Anticoagulant Meds if any: NOT Prescribed or Continued at Discharge
[2017-12-06] MEDS ORDERED: CEFPODOXIME PR200 M2 PO (13:22)
== END 2017-12-06 13:58 | DRG 433 ==
LOC: ERH 14:55 → ERHI 18:32 → ENRESERV 12-05 18:46 → ENTRNSPT 12-05 19:35 → EDTRNSPTSTS 12-05 19:48 → EDTRNSPT 12-05 19:48 → CMPTRNSPT 12-05 20:05 → 2NB 12-05 20:06 → ENPENDDIS 12-06 13:37 → 2NB 12-06 13:58
PROVIDERS: Internal Medicine; Physical Medicine & Rehabilitation Pain Medicine; Physician Assistant
DX: K70.10 Alcoholic hepatitis without ascites (principal); F10.239 Alcohol dependence with withdrawal, unspecified; N39.0 Urinary tract infection, site not specified; E87.2 Acidosis; G43.909 Migraine, unspecified, not intractable, without status migrainosus; F41.9 Anxiety disorder, unspecified; F17.200 Nicotine dependence, unspecified, uncomplicated
CPT/HCPCS: 2NBSP; ERO; 36415; 74176; 81001; 81003; 81025; 82436; 87040; 87086; 93005; 93010; G0480; J0131; J0696; J1650; J2405; J3490